=== PATIENT | female | born 1985 | race Hispanic/Latino ===

== ENCOUNTER 2017-12-08 03:50 | Observation (INO) | payer OTHER, SELFPAY ==
[2017-12-08 04:24] LABS: #Basophils 0.1 thou/uL (0.0-0.2); #Eosinphils 0.4 thou/uL (0.0-0.7); #Monocytes 0.6 thou/uL (0.11-0.59); #Neutrophils 6.8 thou/uL (1.40-6.50); %Basophils 0.8 % (0.0-1.0); %Eosinophils 3.7 % (0.0-10.0); %Lymphocytes 20.1 % (21.0-51.0); %Monocytes 5.6 % (0.0-10.0); %Neutrophils 69.8 % (42.0-75.0); Hemoglobin 13.4 g/dL (12.0-16.0); Mean Corpuscular HGB CONC 34.7 g/dL (32.0-36.0); Mean Corpuscular Hemoglobin 30.7 pg (27.0-31.0); Mean Corpuscular Volume 88.3 fl (81.0-99.0); Mean Platelet Volume 8.4 fL (7.4-10.4); Platelet Count 222 thou/uL (130-400); RBC Distribution Width 11.5 % (11.5-14.5); Red Blood Cell (RBC) Count 4.36 mill/uL (4.20-5.40); White Blood Cell (WBC) Count 9.8 thou/uL (4.8-10.8)
[2017-12-08] MEDS ORDERED: Morphine 4 MG/ML VIAL ONE (04:30)
[2017-12-08] MEDS ORDERED: Ondansetron HCl/PF 4 MG/2 ML Vial ONE ×2 (04:30→16:56)
[2017-12-08 04:45] LABS: ALT (SGPT) 27 U/L (8-55); AST (SGOT) 19 U/L (5-34); Albumin 4.1 g/dL (3.5-5.0); Alkaline Phosphatase 80 U/L (40-150); Anion Gap 12 mmol/L (10-20); BUN (Urea Nitrogen) 15 mg/dL (7.0-18.7); Bilirubin, Total 0.4 mg/dL (0.2-1.2); Calc. Creatinine Clearance 0 mL/min (70-130); Calcium 9.9 mg/dL (7.8-10.44); Carbon Dioxide 26 mmol/L (22-29); Chloride 100 mmol/L (98-107); Estimated GFR-MDRD 89; Glucose 123 mg/dL (70-105); Lipase 37 U/L (8-78); Potassium 3.7 mmol/L (3.5-5.1); Protein, Total 7.1 g/dL (6.0-8.3); Sodium 134 mmol/L (136-145)
[2017-12-08 05:04] LABS: Bilirubin Negative (Negative); Blood, Urine Negative (Negative); Clarity TURBID (Clear); Glucose, Urine (Dipstick) Negative (Negative); Leukocyte Negative (Negative); Nitrite Negative (Negative); Protein, Urine (Dipstick) Negative (Neg-Trace); Specific Gravity, Urine 1.016 (1.002-1.036); Urobilinogen 0.2 mg/dL (0.2-1.0)
[2017-12-08 05:05] LABS: Pregnancy Test - Urine (BHCG) Negative (Negative); Pregu Control Background? CLEAR/WHITE (CLR/WHITE); Pregu Control Bar Appear? YES (CONTROL BAR); Specific Gravity 1.016 (1.002-1.036)
[2017-12-08] MEDS ORDERED: Ondansetron HCl/PF 4 MG/2 ML Vial IVP PRN ×2 (08:02→13:45)
[2017-12-08] MEDS ORDERED: Morphine 5 MG/ML SYRINGE SLOW IVP PRN ×2 (08:03→09:37)
[2017-12-08] MEDS ORDERED: Sodium Chloride 0.9% 1,000 ML IV SCH (08:15)
[2017-12-08] MEDS ORDERED: FLU VACC QS2017-18 36 mo. & older 0.5 ML SYRINGE IM ONE (09:00)
[2017-12-08] MEDS ORDERED: Meropenem 1 GM in Sterile Water 20 ML SLOW IVP SCH (09:00)
[2017-12-08] MEDS ORDERED: Ketorolac Tromethamine 30 MG/ML VIAL IVP PRN (10:26)
[2017-12-08] MEDS ORDERED: Acetaminophen 1,000 MG in Premix Bag 1 BAG IVPB PRN (10:26)
--- NOTE | 2017-12-08 11:16 | ULT ---
PRELIMINARY REPORT/[facility]/EMERGENCY AFTER HOURS PROCEDURE: EXAM: US Abdomen Limited, Right Upper Quadrant CLINICAL HISTORY: 32 years old, female; Pain; Other: Upper abd pain TECHNIQUE: Real-time ultrasound of the right upper quadrant with image documentation. COMPARISON: No relevant prior studies available. FINDINGS: Liver: No acute findings. Echogenic/fatty. No mass. No intrahepatic bile duct dilation. Gallbladder: Cholelithiasis including a gallstone with shadowing in the gallbladder neck. Gallbladder wall thickening/edema. Possible trace pericholecystic fluid. Positive Canas's sign. Common bile duct: Unremarkable. Pancreas: Limited visualization due to bowel gas. Unremarkable as visualized. Right kidney: No acute findings. No hydronephrosis. IMPRESSION: Cholelithiasis with gallbladder wall thickening and positive Canas's sign concerning for acute cholecystitis. Thank you for allowing us to participate in the care of your patient. Dictated and Authenticated by: Vishal lAlen MD 12/08/2017 5:18 AM Central Time ([place] & [place]) FINAL REPORT EMERGENCY AFTER HOURS RIGHT UPPER QUADRANT ULTRASOUND: Date: 12/08/17 IMPRESSION: I agree with the preliminary interpretation given by Terell. Cholelithiasis and findings compatible wit h acute cholecystitis. Fatty infiltration of the liver. POS: [facility]
[2017-12-08] MEDS ORDERED: Scopolamine 1.5 mg/72 hour Patch ONE (11:50)
[2017-12-08] MEDS ORDERED: Scopolamine 1.5 mg/72 hour Patch TOP SCH (12:00)
--- NOTE | 2017-12-08 12:13 | HP ---
HISTORY OF PRESENT ILLNESS: Marah Mayfield is a 32-year-old female, 2, para 2 with a several week history of episodic epigastric right upper quadrant pain with back radiation and nausea. She pr esented to the emergency room. Ultrasound reveals gallstones with sonographic positive Canas sign. Liver function tests normal. Negative test. Plan is for laparoscopic video cholecystecto my and discharged home today. Follow up in my office in 2-3 weeks. Risk of infection, bleeding, and visceral biliary was explained, she consents. ALLERGIES: None. TOBACCO: None. ALCOHOL: None. MEDICATIONS: None. PAST MEDICAL HISTORY: Noncontributory. PAST SURGICAL HISTORY: Noncontributory. REVIEW OF SYSTEMS: 10-point noncontributory. PHYSICAL EXAMINATION: VITAL SIGNS: 199 pounds, 97.7, 66, 164/66. HEAD, EARS, EYES, NOSE AND THROAT: Unremarkable. LUNGS: Clear to auscultation. CARDIAC: Regular rate and rhythm without murmur or gallop. ABDOMEN: Soft. Tenderness epigastric, right upper quadrant, positive Canas sign. EXTREMITIES: Unremarkable. LABORATORY DATA: Sodium 134, potassium 3.7. Liver function tests normal. Renal function normal. W mila count 9.8, hemoglobin 13.4. ASSESSMENT AND PLAN: Acute cholecystitis and cholelithiasis. Recommend laparoscopic video cholecyst ectomy. Risk and benefits explained, she consents. The patient lives by herself. At this point, he r has left the hospital to get something to eat.
[2017-12-08] MEDS ORDERED: HYDROmorphone 0.5 MG/0.5 ML SYRINGE ONE (12:39)
[2017-12-08] MEDS ORDERED: Fentanyl 250 MCG/5 ML VIAL ONE (12:39)
[2017-12-08] MEDS ORDERED: Bupivacaine HCl 0.5%/Epinephrine 1:200,000/PF 30 ml Vial ONE (12:41)
[2017-12-08] MEDS ORDERED: HYDROmorphone 2 MG/ML VIAL SLOW IVP PRN (13:45)
[2017-12-08] MEDS ORDERED: Promethazine HCl 25 MG/ML VIAL SLOW IVP PRN (13:45)
[2017-12-08] MEDS ORDERED: Promethazine HCl 25 MG/ML VIAL IM PRN (13:45)
[2017-12-08] MEDS ORDERED: Morphine 2 MG/ML SYRINGE ONE (14:03)
[2017-12-08] MEDS ORDERED: Acetaminophen 500 MG TAB PO PRN (14:07)
[2017-12-08] MEDS ORDERED: traMADol HCl 50 MG TAB PO PRN ×2 (14:07)
--- NOTE | 2017-12-08 14:57 | OP ---
PREOPERATIVE DIAGNOSIS: Acute and chronic cholecystitis and cholelithiasis. POSTOPERATIVE DIAGNOSIS: Acute and chronic cholecystitis and cholelithiasis. PROCEDURE: Laparoscopic video cholecystectomy. SURGEON: Dr. Edson Mueller ANESTHESIA: General. Local 0.5% Marcaine with epinephrine, 30 mL total volume mixture used. PROCEDURE IN DETAIL: Patient taken to the operating room under general anesthesia, abdomen was prepa red with ChloraPrep and draped in routine fashion. Local anesthetic was infiltrated into the skin an d subcutaneous tissue about each port sites. Infraumbilical incision made and pneumoperitoneum to 15 mmHg obtained with the Veress needle, replacing it with a 5 port and video laparoscope inserted. Ri ght subxiphoid incision made and 11 port placed. Right subcostal incisions made mid clavicular anter ior axillary lines and 5 ports placed. Gallbladder was acutely inflamed. Liver appeared to be trino l. Gallbladder was difficult to grasp due to its edematous thickened wall, but we were able to grasp and reflected cephalad. Infundibulum grasped and reflected laterally due to inflammatory reaction, the cystic artery dissected free. Critical view obtained with pericholecystic dissection of two-thir ds of cystic plate and cystic artery and duct doubly clipped proximally, divided, and gallbladder dis sected free from liver bed obtaining good hemostasis prior to division of final peritoneal attachment s. Gallbladder and large gallstones removed and submitted to Pathology. Good hemostasis ensured wit h the cautery. Irrigant and pneumoperitoneum evacuated. All this instruments removed and all skin i ncisions approximated with interrupted subdermal 4-0 Monocryl and DermaGlue applied.
[2017-12-08 16:13] VITALS: TEMP 98.3
[2017-12-08] MEDS ORDERED: Dexamethasone 20 MG/5 ML VIAL ONE (16:56)
[2017-12-08] MEDS ORDERED: Glycopyrrolate 0.2 MG/ML 5 ML SYRINGE ONE (16:56)
[2017-12-08] MEDS ORDERED: PROPOFOL 200 MG/20 ML VIAL ONE (16:56)
[2017-12-08] MEDS ORDERED: Lidocaine 1% PF 5 ML VIAL ONE (16:56)
[2017-12-08 17:55] VITALS: BP 112/71
--- NOTE | 2017-12-08 21:34 | DIS ---
DATE OF ADMISSION: 12/07/2017 DATE OF DISCHARGE: 12/08/2017 DISCHARGE DIAGNOSES: Acute chronic cholecystitis and cholelithiasis. PROCEDURES PERFORMED: Ultrasound of the gallbladder, laparoscopic cholecystectomy. HOSPITAL COURSE: A 32-year-old female who presents with several month history of intermittent right upper quadrant epigastric pain, but had more acute pain lasting 2 days, presented to emergency room, noted to have a sonographic Canas sign, cholelithiasis, normal bile duct caliber, normal liver funct ion test, negative test, admitted to the hospital overnight with intravenous fluids and ant ibiotics, undergoing laparoscopic video cholecystectomy, the next day, findings of acutely inflamed g allbladder, edematous. Postoperatively, she did well and discharged home with Tylenol, ibuprofen as needed and Ultram. Follow up in my office in 2-3 weeks. Diet and activity as tolerated. No lifting restrictions.
[2017-12-13] MEDS ORDERED: Ibuprofen 600 MG TAB PO PRN (12:00)
--- NOTE | 2018-01-02 15:51 | EKG ---
Test Reason : Blood Pressure : / mmHG Vent. Rate : 062 BPM Atrial Rate : 062 BPM P-R Int : 124 ms QRS Dur : 074 ms QT Int : 406 ms P-R-T Axes : 016 024 020 degrees QTc Int : 412 ms Normal sinus rhythm Normal ECG Confirmed by MAHESH JACK MD ([id number]), legal editor TESFAYE EMANUEL ([id number]) on 01/02/2018 3:49:23 PM Referred By: Confirmed By:MAHESH JACK MD
== END 2017-12-08 19:05 | disposition home or self-care (01) ==
LOC: ERS 03:50 → 3SE 07:55
PROVIDERS: ADMIT Specialist; ATTEND Specialist
PROC: 0FT44ZZ Resection of Gallbladder, Percutaneous Endoscopic Approach (ICD-10-PCS; principal; 2017-12-08)
DX: K80.12 Calculus of gallbladder with acute and chronic cholecystitis without obstruction (principal)
CPT/HCPCS: 76705; 80053; 81003; 81025; 83690; 85025; 88304; 93005; 96361; 96374; 96375; 96376; J2270; A4216; G0378; J0131; J0670; J1100; J1170; J1885; J2001; J2185; J2405; J2704; J3010